=== PATIENT | male | born 1980 | race Caucasian/White ===

== ENCOUNTER 2017-03-09 12:38 | Inpatient (IN) ==
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
[2017-03-09] MEDS ORDERED: KETOROLAC 30 MG/1 ML VIAL IV STA (13:50)
[2017-03-09] MEDS ORDERED: KETOROLAC 30 MG/1 ML VIAL ONE (13:50)
[2017-03-09] MEDS ORDERED: HYDROmorphone 2 MG/1 ML VIAL IV STA ×2 (13:56→15:12)
[2017-03-09] MEDS ORDERED: methylPREDNISolone SOD SUC 125 MG/2 ML VIAL IV STA (13:56)
[2017-03-09] MEDS ORDERED: methylPREDNISolone SOD SUC 125 MG/2 ML VIAL ONE (13:58)
[2017-03-09 14:23] LABS: Basophils % 0.2 % (0.0-0.8); Eosinophils # 0.1 10*3/uL (0.0-0.87); Eosinophils % 0.3 % (0.00-10.9); Hematocrit 43.4 VOL% (42.0-52.0); Hemoglobin 15.4 GM/DL (14.0-18.0); Immature Granulocytes % 0.4 %; Immature Granulocytes Absolute 0.07 #; Lymphocytes # 1.9 10*3/uL (1.4-4.0); Lymphocytes % 10.4 % (21.2-54.2); Mean Corpuscular HGB Conc 35.5 GM/DL (32-36); Mean Corpuscular Hemoglobin 31 PG (27-34); Mean Corpuscular Volume 88.4 FL (87-102); Mean Platelet Volume 9.8 FL (9.6-12.0); Monocytes # 1.1 10*3/uL (0.11-0.8); Monocytes % 5.8 % (1.7-12.7); Neutrophils # 15.3 10*3/uL (1.4-7.4); Neutrophils % 82.9 % (38.7-73.9); Platelet Count 373 T/CUMM (130-400); Red Blood Count 4.91 MC/CUMM (3.8-5.5); Red Cell Distribution Width 11.8 % (9.3-17.3); White Blood Count 18.5 T/CUMM (4-12)
[2017-03-09] MEDS ORDERED: HYDROmorphone 2 MG/1 ML VIAL ONE ×2 (14:28→15:12)
[2017-03-09 14:40] LABS: Troponin I Only < 0.015 NG/ML (0.00-0.045)
[2017-03-09 14:41] LABS: Alanine Aminotransferase 43 U/L (16-61); Albumin 4.2 G/DL (3.4-5.0); Alkaline Phosphatase 94 U/L (45-117); Aspartate Amino Transferase 36 U/L (0-37); Blood Urea Nitrogen 27 MG/DL (7-18); Calcium 9.2 MG/DL (8.5-10.1); Glucose 95 MG/DL (74-106); Osmolality,Calculated 287.1 MOS/KG (273-304); Potassium 3.7 MMOL/L (3.5-5.1); Sodium 142 MMOL/L (136-145); Total Protein 6.8 G/DL (6.4-8.3)
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
[2017-03-09] MEDS ORDERED: SODIUM CHLORIDE 0.9% 1,000 ML IV STA (15:02)
[2017-03-09] MEDS: HYDROmorphone 2 MG/1 ML VIAL IV PRN ×2 (15:12→20:46)
[2017-03-09] MEDS ORDERED: ACETAMINOPHEN 325 MG TABLET PO PRN (15:37)
[2017-03-09] MEDS ORDERED: BISACODYL 5 MG TABLET PO PRN (15:37)
[2017-03-09] MEDS ORDERED: ALUMINUM/MAGNES/SIMETH MAX STR 30 ML UDCUP PO PRN (15:37)
[2017-03-09] MEDS ORDERED: ONDANSETRON 4 MG/2 ML VIAL IV PRN (15:37)
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
--- NOTE | 2017-03-09 16:09 | XRay Report ---
History: Right pneumothorax now status post chest tube placement Date: 03/09/2017 at 3:33 PM Study: Chest x-ray AP portable Comparison exam: 03/09/2017 at 2:03 PM The right chest tube appears to be in satisfactory position. The pneumothorax on the right has considerably decreased in size and measures less than 10%. The right lung is reexpanded except for some mild subsegmental atelectasis in the right base. The cardiomediastinal silhouette is stable. The exam is otherwise unchanged. Impression: Considerable improvement of the right pneumothorax following chest tube placement PROCEDURE INTERPRETED AT [facility] DEPARTMENT OF RADIOLOGY Final Report Signed by: Dr. Brittany Nunez
[2017-03-09] MEDS: KETOROLAC 15 MG/1 ML VIAL IV SCH ×2 (17:22→22:25)
[2017-03-09] MEDS: DEXTROSE 5% NACL 0.45% 1,000 ML IV SCH (17:53)
[2017-03-09] MEDS: ALPRAZolam 0.5 MG TABLET PO SCH (19:25)
[2017-03-09] MEDS: GABAPENTIN 300 MG CAPSULE PO SCH (20:46)
[2017-03-09] MEDS: DOCUSATE SODIUM 100 MG CAPSULE PO SCH (20:46)
[2017-03-09] MEDS: amLODIPine 2.5 MG TABLET PO SCH (20:47)
[2017-03-10] MEDS: HYDROmorphone 2 MG/1 ML VIAL IV PRN ×5 (02:52→22:50)
[2017-03-10] MEDS: DEXTROSE 5% NACL 0.45% 1,000 ML IV SCH ×2 (02:53→15:09)
[2017-03-10] MEDS: KETOROLAC 15 MG/1 ML VIAL IV SCH ×4 (04:23→21:55)
[2017-03-10 04:40] LABS: ABG Base Excess 2.4 MMOL/L (-2.5-2.5); ABG HCO3 26.5 MMOL/L (20-26); ABG Oxygen Saturation 97.8 % (95-100); ABG PCO2 49.4 MM HG (35-48); ABG PO2 99.2 MM HG (80-95); ABG TCO2 25.2 MMOL/L (23-27)
[2017-03-10 07:40] LABS: Basophils % 0.1 % (0.0-0.8); Eosinophils % 0.1 % (0.00-10.9); Hematocrit 38.1 VOL% (42.0-52.0); Hemoglobin 13.5 GM/DL (14.0-18.0); Immature Granulocytes % 0.4 %; Immature Granulocytes Absolute 0.07 #; Lymphocytes # 1.9 10*3/uL (1.4-4.0); Lymphocytes % 10.7 % (21.2-54.2); Mean Corpuscular HGB Conc 35.4 GM/DL (32-36); Mean Corpuscular Hemoglobin 31 PG (27-34); Mean Corpuscular Volume 87.6 FL (87-102); Monocytes # 1.4 10*3/uL (0.11-0.8); Neutrophils # 14.3 10*3/uL (1.4-7.4); Neutrophils % 80.7 % (38.7-73.9); Platelet Count 338 T/CUMM (130-400); Red Blood Count 4.35 MC/CUMM (3.8-5.5); Red Cell Distribution Width 11.8 % (9.3-17.3); White Blood Count 17.7 T/CUMM (4-12)
--- NOTE | 2017-03-10 07:53 | XRay Report ---
Exam: XR chest 1V portable Date: 03/10/2017 4:00 AM Indication: Follow-up chest tube Comparison: 03/09/2017 Technical: AP portable Findings: A right-sided thoracotomy tube is present. Tiny less than 1% apical pneumothorax residual present. The heart is mildly prominent. External cardiac leads are present. A few reticular nodular disease present lung anglin bilaterally. Impression: 1. Stable position a right-sided thoracotomy tube with decreased pneumothorax with only a tiny less than 1% apical pneumothorax present. PROCEDURE INTERPRETED AT [facility] DEPARTMENT OF RADIOLOGY Final Report Signed by: Dr. Kp Velarde
[2017-03-10 08:19] LABS: Albumin 3.4 G/DL (3.4-5.0); Calcium 8.8 MG/DL (8.5-10.1); Osmolality,Calculated 281.4 MOS/KG (273-304); Potassium 3.9 MMOL/L (3.5-5.1); Total Protein 5.9 G/DL (6.4-8.3)
[2017-03-10 09:27] LABS: Apearance,Urine CLEAR (Clear); Bilirubin,Urine Negative (Negative); Blood, Urine Negative (Negative); Glucose,Urine (UA) Negative (Negative); Ketones,Urine Negative (Negative); Mucus,Urine Occasional /LPF (Occasional); Nitrite,Urine Negative (Negative); Protein,Urine Negative; Squamous Epithelial Cell,Urine Occasional /HPF (0-10); Urine Color Yellow (Yellow); Urine Specific Gravity 1.011 (1.001-1.035); Urine Urobilinogen < 2.0 EU/DL (0.2-1.0); WBC,Urine <1 /HPF (0-6)
[2017-03-10] MEDS ORDERED: fentaNYL 100 MCG/HR PATCH TRANSDERM SCH (09:30)
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
[2017-03-10] MEDS: PANTOPRAZOLE 40 MG TABLET PO SCH (10:07)
[2017-03-10] MEDS: amLODIPine 2.5 MG TABLET PO SCH ×2 (10:07→20:22)
[2017-03-10] MEDS: DOCUSATE SODIUM 100 MG CAPSULE PO SCH ×2 (10:07→20:22)
[2017-03-10] MEDS: GABAPENTIN 300 MG CAPSULE PO SCH ×3 (10:07→20:22)
[2017-03-10] MEDS: ALPRAZolam 0.5 MG TABLET PO SCH ×3 (10:08→16:59)
[2017-03-10] MEDS: NICOTINE 21 MG/24 HR PATCH TRANSDERM SCH (11:01)
[2017-03-10] MEDS: fentaNYL 100 MCG/HR PATCH TRANSDERM SCH (11:02)
[2017-03-11] MEDS: KETOROLAC 15 MG/1 ML VIAL IV SCH ×4 (03:37→21:31)
[2017-03-11] MEDS: HYDROmorphone 2 MG/1 ML VIAL IV PRN ×8 (03:38→22:45)
[2017-03-11] MEDS: DEXTROSE 5% NACL 0.45% 1,000 ML IV SCH ×4 (03:44→21:30)
--- NOTE | 2017-03-11 06:25 | XRay Report ---
History is chest tube management for pneumothorax Comparison 03/10/2017 Mediastinal contour is unchanged Right chest tube remains. No pneumothorax seen. Minimal hypoaeration changes in the lung bases present. Impression: No pneumothorax seen. Minimal basilar atelectasis PROCEDURE INTERPRETED AT [facility] DEPARTMENT OF RADIOLOGY Final Report Signed by: Dr. July Bello
[2017-03-11] MEDS: amLODIPine 2.5 MG TABLET PO SCH ×2 (08:12→20:01)
[2017-03-11] MEDS: PANTOPRAZOLE 40 MG TABLET PO SCH (08:13)
[2017-03-11] MEDS: ALPRAZolam 0.5 MG TABLET PO SCH ×3 (08:13→16:17)
[2017-03-11] MEDS: DOCUSATE SODIUM 100 MG CAPSULE PO SCH ×2 (08:13→20:01)
[2017-03-11] MEDS: GABAPENTIN 300 MG CAPSULE PO SCH ×3 (08:13→20:01)
[2017-03-11] MEDS: NICOTINE 21 MG/24 HR PATCH TRANSDERM SCH (08:13)
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
[2017-03-12] MEDS: HYDROmorphone 2 MG/1 ML VIAL IV PRN ×4 (03:06→21:47)
[2017-03-12] MEDS: KETOROLAC 15 MG/1 ML VIAL IV SCH ×4 (03:16→22:48)
--- NOTE | 2017-03-12 06:46 | XRay Report ---
XR chest 1V portable Indication: Chest tube placement. Comparison: Chest x-ray 03/11/2017 Technique: Portable AP chest was performed. Findings: Heart size is normal. Pulmonary vasculature appears within normal limits. No significant abnormality of the mediastinal contours demonstrated. Right-sided chest tube is stable in position. There is a small apical pneumothorax with displacement of superior pleural stripe measuring approximately 8 mm. Lungs are otherwise clear. Bones and soft tissues demonstrate no significant abnormalities. Impression: 1. 8 mm apical pneumothorax on the right is present. Chest tube position is stable. Chest is otherwise stable. 03/12/2017 6:42 AM PROCEDURE INTERPRETED AT [facility] DEPARTMENT OF RADIOLOGY Final Report Signed by: Dr. Reji Rodriguez
[2017-03-12] MEDS: ALPRAZolam 0.5 MG TABLET PO SCH ×3 (08:49→17:49)
[2017-03-12] MEDS: DOCUSATE SODIUM 100 MG CAPSULE PO SCH ×2 (08:49→20:03)
[2017-03-12] MEDS: GABAPENTIN 300 MG CAPSULE PO SCH ×3 (08:49→20:02)
[2017-03-12] MEDS: amLODIPine 2.5 MG TABLET PO SCH ×2 (08:50→20:02)
[2017-03-12] MEDS: DEXTROSE 5% NACL 0.45% 1,000 ML IV SCH ×3 (08:50→23:19)
[2017-03-12] MEDS: NICOTINE 21 MG/24 HR PATCH TRANSDERM SCH (08:51)
[2017-03-12] MEDS: PANTOPRAZOLE 40 MG TABLET PO SCH (08:51)
[2017-03-12] MEDS ORDERED: fentaNYL 100 MCG/HR PATCH TRANSDERM SCH (09:00)
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
[2017-03-13] MEDS: HYDROmorphone 2 MG/1 ML VIAL IV PRN ×3 (02:13→18:56)
[2017-03-13] MEDS: KETOROLAC 15 MG/1 ML VIAL IV SCH ×4 (04:22→21:42)
[2017-03-13] MEDS: DEXTROSE 5% NACL 0.45% 1,000 ML IV SCH (05:55)
[2017-03-13 06:14] LABS: Basophils % 0.5 % (0.0-0.8); Eosinophils # 0.4 10*3/uL (0.0-0.87); Eosinophils % 4.7 % (0.00-10.9); Hematocrit 36.3 VOL% (42.0-52.0); Hemoglobin 12.6 GM/DL (14.0-18.0); Immature Granulocytes % 0.4 %; Immature Granulocytes Absolute 0.03 #; Lymphocytes # 3.2 10*3/uL (1.4-4.0); Lymphocytes % 38.7 % (21.2-54.2); Mean Corpuscular HGB Conc 34.7 GM/DL (32-36); Mean Corpuscular Hemoglobin 31 PG (27-34); Mean Corpuscular Volume 89.9 FL (87-102); Mean Platelet Volume 10.1 FL (9.6-12.0); Monocytes # 0.7 10*3/uL (0.11-0.8); Monocytes % 7.9 % (1.7-12.7); Neutrophils % 47.8 % (38.7-73.9); Platelet Count 252 T/CUMM (130-400); Red Blood Count 4.04 MC/CUMM (3.8-5.5); Red Cell Distribution Width 11.8 % (9.3-17.3); White Blood Count 8.4 T/CUMM (4-12)
[2017-03-13 06:39] LABS: Calcium 8.7 MG/DL (8.5-10.1); Magnesium 2.3 MG/DL (1.8-2.4); Osmolality,Calculated 279.3 MOS/KG (273-304); Potassium 4.1 MMOL/L (3.5-5.1)
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
[2017-03-13] MEDS: ALPRAZolam 0.5 MG TABLET PO SCH ×3 (09:11→18:00)
[2017-03-13] MEDS: DOCUSATE SODIUM 100 MG CAPSULE PO SCH ×2 (09:11→21:30)
[2017-03-13] MEDS: PANTOPRAZOLE 40 MG TABLET PO SCH (09:12)
[2017-03-13] MEDS: amLODIPine 2.5 MG TABLET PO SCH ×3 (09:12→21:32)
[2017-03-13] MEDS: GABAPENTIN 300 MG CAPSULE PO SCH ×3 (09:12→21:30)
[2017-03-13] MEDS: NICOTINE 21 MG/24 HR PATCH TRANSDERM SCH (09:13)
[2017-03-13] MEDS: fentaNYL 100 MCG/HR PATCH TRANSDERM SCH (09:18)
--- NOTE | 2017-03-13 11:18 | XRay Report ---
XR chest 1V portable Indication: Chest tube. Comparison: Chest x-ray 03/13/2017 0615 hours Technique: Portable AP chest was performed. Findings: Placement of right-sided chest tube in appearance of the right chest is stable. No pneumothorax is identified. Minimal band of atelectasis left lung base is stable. Chest is otherwise unchanged. Impression: 1. Stable chest. No residual pneumothorax is present on current image. 03/13/2017 11:15 AM PROCEDURE INTERPRETED AT [facility] DEPARTMENT OF RADIOLOGY Final Report Signed by: Dr. Reji Rodriguez
--- NOTE | 2017-03-13 13:58 | Event Note ---
03/13/2016. Chest x-ray this morning showed lung to be up and after we clamped it for 3 hours at 11 the lung was still up. We will go ahead and plan to pull the tube today.
--- NOTE | 2017-03-13 13:59 | Event Note ---
03/13/2017 1400 hrs. After the patient was preop had and the dressings were carefully placed and we were able to pull the chest tube without difficulty. Had no pain or shortness of breath afterwards. At this point if the has a negative chest x-ray in the morning then we may be able to let him go home.
[2017-03-14] MEDS: KETOROLAC 15 MG/1 ML VIAL IV SCH ×2 (03:46→11:21)
--- NOTE | 2017-03-14 07:35 | XRay Report ---
XR chest 1V portable Indication: Chest tube removal. Comparison: Chest x-ray 03/13/2017 Technique: Portable AP chest was performed. Findings: No pneumothorax is demonstrated within the right chest status post removal of right-sided chest tube. Minimal atelectasis is suggested within the right middle lobe. Lungs otherwise are clear. Heart size is normal. Bones and soft tissues demonstrate no abnormality. Impression: 1. Interval removal of right-sided chest tube. No pneumothorax. 2. Minimal atelectasis in the right middle lobe is suggested. 03/14/2017 7:32 AM PROCEDURE INTERPRETED AT [facility] DEPARTMENT OF RADIOLOGY Final Report Signed by: Dr. Reji Rodriguez
[2017-03-14] MEDS: ALPRAZolam 0.5 MG TABLET PO SCH ×3 (10:12→17:15)
[2017-03-14] MEDS: GABAPENTIN 300 MG CAPSULE PO SCH ×3 (10:12→20:08)
[2017-03-14] MEDS: DOCUSATE SODIUM 100 MG CAPSULE PO SCH ×2 (10:12→20:08)
[2017-03-14] MEDS: PANTOPRAZOLE 40 MG TABLET PO SCH (10:13)
[2017-03-14] MEDS: NICOTINE 21 MG/24 HR PATCH TRANSDERM SCH (10:15)
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
[2017-03-14] MEDS: amLODIPine 2.5 MG TABLET PO SCH ×2 (10:50→20:08)
[2017-03-14] MEDS: HYDROmorphone 2 MG/1 ML VIAL IV PRN ×4 (12:15→23:39)
[2017-03-15] MEDS: DEXTROSE 5% NACL 0.45% 1,000 ML IV SCH (00:58)
[2017-03-15] MEDS: HYDROmorphone 2 MG/1 ML VIAL IV PRN ×4 (02:00→08:55)
[2017-03-15 07:49] VITALS: BP 116/60
[2017-03-15] MEDS: GABAPENTIN 300 MG CAPSULE PO SCH (08:53)
[2017-03-15] MEDS: amLODIPine 2.5 MG TABLET PO SCH (08:54)
[2017-03-15] MEDS: DOCUSATE SODIUM 100 MG CAPSULE PO SCH (08:54)
[2017-03-15] MEDS: ALPRAZolam 0.5 MG TABLET PO SCH (08:54)
[2017-03-15] MEDS: PANTOPRAZOLE 40 MG TABLET PO SCH (08:54)
[2017-03-15] MEDS: NICOTINE 21 MG/24 HR PATCH TRANSDERM SCH (08:58)
--- NOTE | 2017-03-15 10:55 | Event Note ---
I have seen and examined this patient and agree with the note by ALIYA Caldwell. The patient has resolved his pneumothorax on x-rays and is ready for discharge.
== END 2017-03-15 10:30 | disposition home or self-care (01) | DRG 201 ==
LOC: N.ED 12:38 → N.EDINP 15:37 → N.3E 16:37
PROVIDERS: ADMIT Specialist; ATTEND Specialist